=== PATIENT | female | born 1970 | race Two or more races ===

== ENCOUNTER 2024-09-24 01:41 | Emergency (ER) | payer MEDICAID, OTHER ==
[~2024-09-24] VITALS: Ht 152.4 cm; Wt 66.6 kg
[2024-09-24 02:19] LABS: Potassium 3.9 mmol/L (3.5-5.1); Sodium 142 mmol/L (136-145)
[2024-09-24 02:20] LABS: Anion Gap 10 (5-15); Calcium 9.3 mg/dL (8.7-10.4); Carbon Dioxide 24 mmol/L (20-31); Hematocrit 42.8 % (36.0-46.0); Hemoglobin 14.4 g/dL (12.2-16.2); Mean Corpuscular Hemoglobin 30.1 pg (28.0-32.0); Mean Corpuscular Volume 89.2 fL (80.0-100.0); Nucleated Red Blood Cells % 0.1 %
[2024-09-24 02:23] LABS: Chloride 108 mmol/L (98-107)
[2024-09-24 02:25] LABS: BUN/Creatinine Ratio 13.6 (10.0-20.0); Blood Urea Nitrogen 11 mg/dL (9-23); Glucose 90 mg/dL (74-106)
--- NOTE | 2024-09-24 03:37 | ED.PDOC ---
HPI Comments 54-year-old female with a history of hypertension and dyslipidemia brought in by spouse for evaluation of elevated blood pressure and palpitations. Patient states she had epigastric abdominal pain discomfort yesterday, associated with nausea which now has resolved. She denies any associated fever, vomiting, diarrhea or urinary symptoms. Patient states at around 1:00 a.m. this morning she developed palpitations. She states she checked her blood pressure and it was extremely high. She denies current abdominal pain, chest pain, shortness of breath, nausea, vomiting or diaphoresis. Persistence of palpitations prompted patient to come to the emergency room. 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 History: Denies all DISPENSARY TECHNICIAN Hx Family History Family History: Reviewed,noncontributory to illness Social History Smoker: Non-Smoker Alcohol: Denies ETOH Use Drugs: Denies Drug Use Lives In: Home Constitutional: denies: chills, diaphoresis, fatigue, fever, malaise, sweats, weakness, others EENTM: denies: blurred vision, double vision, ear bleeding, ear discharge, ear drainage, ear pain, ear ringing, eye pain, eye redness, hearing loss, mouth pain, mouth swelling, nasal discharge, nose bleeding, nose congestion, nose pain, photophobia, tearing, throat pain, throat swelling, voice changes, others Respiratory: denies: cough, hemoptysis, orthopnea, SOB at rest, shortness of breath, SOB with excertion, stridor, wheezing, others Cardiovascular: reports: palpitations; denies: chest pain, dizzy spells, diaphoresis, Dyspnea on exertion, edema, irregular heart beat, left arm pain, l ightheadedness, PND, syncope, others Gastrointestinal: reports: abdominal pain; denies: abdomen distended, blood streaked bowels, constipated, diarrhea, dysphagia, difficulty swallowing, hematemesis, melena, nausea, poor appetite, poor fluid intake, rectal bleeding, rectal pain, vomiting, others Genitourinary: denies: abnormal vagina bleeding, burning, dyspareunia, dysuria, flank pain, frequency, hematuria, incontinence, pain, , vagina discharge, urgency, others Neurological: denies: dizziness, fainting, headache, left sided numbness, left sided weakness, numbness, paresthesia, pre-existing deficit, right sided numbness, right sided weakness, seizure, speech problems, tingling, tremors, weakness, others Musculoskeletal: denies: back pain, gout, joint pain, joint swelling, muscle pain, muscle stiffness, neck pain, others Integumetry: denies: bruises, change in color, change in hair/nails, dryness, laceration, lesions, lumps, rash, wounds, others Allergic/Immunocompromised: denies: Difficulty Healing, Frequent Infections, Hives, Itching, others Hematologic/Lymphatic: denies: anemia, blood clots, easy bleeding, easy bruising, swollen glands, others Endocrine: denies: excessive hunger, excessive sweating, excessive thirst, excessive urination, flushing, intolerance to cold, intolerance to heat, unexplained weight gain, unexplained weight loss, others Psychiatric: denies: anxiety, bipolar disorder, depression, hopeless, panic disorder, schizophrenia, sleepless, suicidal, others Physical Exam General Appearance: No Apparent Distress, Obese HEENT: Other (Pupils and face symmetric. Moist mucous membranes.) Neck: Full Range of Motion, Normal Inspection Respiratory: Lungs Clear, No Accessory Muscle Use, No Respiratory Distress, Normal Breath Sounds Cardiovascular: No Edema, No JVD, Regular Rate/Rhythm Breast Exam: Deferred Gastrointestinal: Non Tender, Soft Genitalia: Deferred Pelvic: Deferred Rectal: Deferred Extremities: Normal inspection, Normal range of motion, Non-tender, No pedal edema Neurologic: Alert (Oriented x4), Normal Affect, Normal Mood, Other (Ambulatory) Cerebellar Function: NOT DONE Reflexes: NOT DONE Skin: Dry, Normal Color, Warm Lymphatic: NOT DONE EKG EKG : Comments Sinus rhythm, rate 76, normal intervals, normal axis, normal QRS, nonspecific T change. Was a procedure done? Was a procedure done?: No CP Differential Dx Differential Diagnosis: Angina, Anxiety / Panic Attack, Electrolyte Disorder, Hyperventilation Differential Diagnosis: CHF, HTN Essential, HTN Accelerated Differential Diagnosis: Esophageal reflux/spasm, Gastritis, Myocardial Infarction X-Ray, Labs, Meds, VS Vital Signs Date Time Temp Pulse Resp B/P (MAP) Pulse Ox O2 Delivery O2 Flow Rate FiO2 09/24/24 01:47 98.2 81 16 162/82 (108) 98 98.2 Lab Test 09/24/24 02:43 09/24/24 01:51 Range/Units Troponin I High Sensitivity 6 6 </=34 ng/L White Blood Count 6.2 4.4-10.8 10^3/uL Red Blood Count 4.80 4.0-5.20 10^6/uL Hemoglobin 14.4 12.2-16.2 g/dL Hematocrit 42.8 36.0-46.0 % Mean Corpuscular Volume 89.2 80.0-100.0 fL Mean Corpuscular Hemoglobin 30.1 28.0-32.0 pg Mean Corpuscular Hemoglobin Concent 33.7 32.0-36.0 g/dL Red Cell Distribution Width 13.3 11.8-14.3 % Platelet Count 254 140-450 10^3/uL Mean Platelet Volume 9.5 6.9-10.8 fL Neutrophils (%) (Auto) 50.5 37.0-80.0 % Lymphocytes (%) (Auto) 40.1 10.0-50.0 % Monocytes (%) (Auto) 5.1 0.0-12.0 % Eosinophils (%) (Auto) 3.7 0.0-7.0 % Basophils (%) (Auto) 0.6 0.0-2.0 % Neutrophils # (Auto) 3.1 1.6-8.6 10 ^3/uL Lymphocytes # (Auto) 2.5 0.4-5.4 10 ^3/uL Monocytes # (Auto) 0.3 0-1.3 10 ^3/uL Eosinophils # (Auto) 0.2 0-0.8 10 ^3/uL Basophils # (Auto) 0 0-0.2 10 ^3/uL Nucleated Red Blood Cells 0.1 % Sodium Level 142 136-145 mmol/L Potassium Level 3.9 3.5-5.1 mmol/L Chloride Level 108 H 98-107 mmol/L Carbon Dioxide Level 24 20-31 mmol/L Anion Gap 10 5-15 Blood Urea Nitrogen 11 9-23 mg/dL Creatinine 0.81 0.550-1.02 mg/dL Glomerular Filtration Rate Calc 86 >90 mL/min BUN/Creatinine Ratio 13.6 10.0-20.0 Serum Glucose 90 74-106 mg/dL Calcium Level 9.3 8.7-10.4 mg/dL B-Type Natriuretic Peptide 18.07 0-100 pg/mL X-Ray, Labs, Meds, VS Comment 54-year-old female with a history of hypertension and dyslipidemia complaining of elevated blood pressure and palpitations, associated with upper abdominal discomfort yesterday Vitals remarkable for BP 162/82 Exam unremarkable Rhythm strip independently interpreted by me: Sinus rhythm, rate 76, no ectopy. Chest x-ray unremarkable CBC, basic metabolic panel, BNP and troponin unremarkable for any abnormality of acute significance Patient treated with the following in the ED: Viscous lidocaine 10 mL, 10 mL, Maalox 30 mL p.o. On re-evaluation, patient is asymptomatic with stable vitals. No chest pain, shortness a breath, abdominal pain or tenderness. Patient appears stable for discharge with close outpatient follow-up with her primary physician. Time of 1ST Reevaluation: 03:29 Reevaluation 1ST: Unchanged Patient Education/Counseling: Diagnosis, Treatment Family Education/Counseling: No Family Present SEPSIS Sepsis Screen Date sepsis recognized/suspect: Sep 24, 2024 Time Sepsis recognized/suspect: 147 Recent Procedure: No On Antibiotic Therapy: No Respiratory Rate >20: No Heart Rate >90: No Temp<36 C (96.8 F) or >38.3 C: No SBP <90 or MAP <65 mmHG: No New Acute Mental Status Change: No Is the patient on CPAP, BIPAP,: No Physician Orders Electrocardigram (09/24/24 01:44) Chest Portable (09/24/24 02:05) Urinalysis (09/24/24 02:05) Test, Urine (09/24/24 02:05) Vital Signs Date Time Temp Pulse Resp B/P (MAP) Pulse Ox O2 Delivery O2 Flow Rate FiO2 09/24/24 01:47 98.2 81 16 162/82 (108) 98 98.2 Laboratory Tests Test 09/24/24 01:51 White Blood Count 6.2 10^3/uL (4.4-10.8) Departure 1 Departure Time of Disposition: 04:09 Impression: Primary Impression: Palpitations Disposition: HOME / SELF CARE / HOMELESS Condition: Stable Additional Instructions: Your blood tests, including screening test for heart attack and heart failure, were unremarkable. Your chest x-ray was normal. I have prescribed medication for your symptoms. Follow-up with your primary doctor in 1-2 days. e-Prescriptions Famotidine (Pepcid AC) 20 Mg Tab 20 MG PO BID PRN, #30 TAB prn abdominal discomfort Prov: SIVAN PARADA MD 09/24/24 Discharged With: Spouse Critical Care Note Critical Care Time?: No Stability Stability form required: No Heart Score Heart Score: Heart Score Response (Comments) Value History Slightly Suspicious 0 EKG Normal 0 Age 45-64 1 Risk Factors 1 or 2 risk factors 1 Troponin Normal limit 0 Total 2 I personally scribed for SIVAN PARADA MD ([email or web address]) on 09/24/24 at 03:37. Electronically submitted by Tereso Gerard ([facility] SIVAN PARADA MD Sep 24, 2024 03:37
[2024-09-24] MEDS ORDERED: FAMO-161 PO (04:11)
[2024-09-24 04:55] VITALS: BP 136/71; PULSE 59; RESP 16; TEMP 97.6; O2SAT 99
--- NOTE | 2024-09-24 04:55 | DVH ---
CHEST RADIOGRAPH Indication: Palpitations Technique: Single frontal view of the chest was obtained Comparison: None FINDINGS: Lines and Tubes: None Lungs: No focal consolidation. Pleura: No effusion. No pneumothorax. Cardiomediastinal contours: Unremarkable Bones: No acute osseous abnormality. IMPRESSION: No acute cardiopulmonary disease.
[2024-09-24] MEDS: DONNATAL 5ml ORAL Elix (BELLADONNA ALK-PHENOBARB) PO ONE (05:10)
[2024-09-24] MEDS: LIDOCAINE VISCOUS 2% 15ML UD PO ONE (05:11)
[2024-09-24] MEDS: MAALOX PLUS or MAALOX 30 ML PO ONE (05:11)
--- NOTE | 2024-09-27 11:45 | ECG ---
[facility] Test Date: 2024-09-24 Test Time: 01:50:17 Pat Name: SUSAN ASIF Department: ED Room: Gender: F C[employer] Lining: JADE : 1970 Requested By: SIVAN VALDEZ Order Number: [id number] Reading MD: Measurements Intervals [place] Rate: 76 P: 70 TN: 147 QRS: 79 QRSD: 87 T: 47 QT: 374 QTc: 421 Interpretive Statements Sinus rhythm Please click the below link to view image of tracing.
== END 2024-09-24 05:11 | disposition home or self-care (01) ==
LOC: ER 01:41
DX: R00.2 Palpitations (principal); E78.5 Hyperlipidemia, unspecified; I10 Essential (primary) hypertension
CPT/HCPCS: 36415; 71045; 80048; 83880; 84484; 85025; 93005